=== PATIENT | female | born 1990 | race Caucasian/White ===

== ENCOUNTER → 2024-07-13 13:02 | Outpatient (REF) | payer OTHER, SELFPAY | LOC: HWRAD 13:02 | PROVIDERS: ATTENDING PHYSICIAN Physician Assistant Surgical; FAMILY PHYSICIAN Internal Medicine | DX: N91.2 Amenorrhea, unspecified (principal) | CPT/HCPCS: 76801 ==

== ENCOUNTER 2025-04-29 22:35 | Emergency (ER) | payer OTHER, SELFPAY ==
[2025-04-29 22:37] VITALS: BP 148/84
--- NOTE | 2025-04-30 01:02 | ED.GENMED ---
History of Present Illness
General
Chief Complaint: Allergic Reaction
Source: patient and family
Exam Limitations: none
Time Seen by Provider: 04/29/25 23:35
History of Present Illness
History of Present Illness:
Note:
CHIEF COMPLAINT(S)
Patient presents with a rash accompanied by itching, primarily on the legs.
HISTORY OF PRESENT ILLNESS
The patient is a 34-year-old female, currently 15 weeks , who reports developing a rash associated with significant itching. The patient noted the onset of the rash yesterday evening, with initial relief after sleeping, only for it to flare
up again this afternoon, predominantly affecting the legs, back, and stomach. The rash seems to be more severe on the legs. The patient denies any new lotions, detergents, or exposures but admits to recently attending the beach with family. The
patients past medical history of skin conditions such as eczema was questioned, but no previous episodes during past pregnancies were reported. The patient tried diphenhydramine (Benadryl), which provided minimal relief. She expressed concern about
the safety of medication use during . The patient denies any fever, swelling of the lips, tongue, or throat, and there is no history of systemic symptoms like wheezing or breathing difficulty.
Plan includes reassurance regarding well-being, given normal heart tones and absence of obstetric-related complaints like bleeding or cramping. Dermatologic examination shows rash and hives localized primarily to the legs and back.
PAST MEDICAL AND SURGICAL HISTORY
- Patient is currently 15 weeks .
REVIEW OF SYSTEMS
- Dermatological: Rash with itching on legs, back, and stomach. No reports of swelling or systemic involvement.
- Respiratory: Denies wheezing or respiratory distress.
- Constitutional: Reports waking up with symptoms partially resolved.
PHYSICAL EXAM
General: Alert, no acute distress.
ENT tongue normal, lips normal, throat normal, no stridor
Skin: Erythematous rash noted primarily on the legs; less severe on the back. Hives noted on the legs and to a lesser degree on the arms. No papules. No vesicles
Respiratory: Respirations are non-labored. Lungs clear to auscultation, heart regular without murmur
Neurological: Alert and oriented to person, place, time, and situation.
Psychiatric: Cooperative, appropriate mood & affect.
PROBLEM LIST
Acute:
- Rash with itching, likely related to -associated atopic eruption or potential allergic reaction.
PLAN
- Recommend low-potency topical steroid ointments (prescription to be filled if symptoms persist).
- Commercial Administrator on regular moisturizing and potential use of loratadine (Claritin) if itching becomes intolerable.
- Advise keeping a diary of potential triggers, including new lotions, detergents, or environmental exposures.
- Recommend avoiding potential irritants and maintaining a fragrance-free environment.
- Plan for follow-up if systemic symptoms develop, including respiratory distress or lip/tongue swelling.
- Stress importance of observing the rashs progression and return for urgent care if symptoms escalate.
DIFFERENTIAL DIAGNOSIS
The Differential Diagnosis includes, in no particular order and is not limited to:
1. Atopic eruption of
2. Allergic contact dermatitis
3. Viral exanthem
4. Yxyy-olnj-ctusk disease (less likely, given presentation)
5. Pruritic urticarial papules and plaques of (PUPPP)
6. Drug-induced hypersensitivity
7. Heat rash (miliaria)
8. Seborrheic dermatitis
9. Eczema exacerbation
10. Stress-induced urticaria
Disposition:
SUMMARY OF ENCOUNTER
The patient is a 34-year-old female who presented with hives primarily localized to the legs. She reports the rash is improving despite continued itching. A thorough examination revealed a benign condition except for the presence of hives.
The patient was queried for atopic eruption of or allergen-induced causes.
PLAN
Recommend the use of low-potency topical steroid, triamcinolone, to be applied to the most affected areas. The use of loratadine (Claritin) as needed was also advised for persistent itching. The patient should discontinue diphenhydramine (Benadryl)
if loratadine proves effective. It is crucial for her to follow up with her TRA[employer] for ongoing assessment.
PATIENT EDUCATION AND COUNSELING
Counseled the patient on the potential causes of her rash, including atopic eruption of or allergen exposure. Advised on management strategies including the cautious use of medications considering her . Discussed the importance of
identifying any potential triggers for the rash and maintaining regular follow-ups with her developer advisor.
FOLLOW-UP INSTRUCTIONS
The patient is advised to follow up with her developer advisor to monitor the condition and adjust any management plans as necessary.
MEDICATION RECONCILIATION
1. Recommended triamcinolone ointment for topical use on affected areas.
2. Consider loratadine (Claritin) as needed for persistent itching.
MEDICAL DECISION MAKING
- Complexity of Data Reviewed: Chronic conditions affecting care [current ]. Differential diagnoses considered include atopic eruption of , allergic contact dermatitis, and potential allergic reactions.
- Data:
- Category 1: No external labs or imaging required at this time.
- Category 3: Discussed management with the patient, recommending follow-up with her developer advisor.
- Risk: Prescription medication was prescribed. Triamcinolone ointment and loratadine were recommended, with consideration for her status during planning.
DIAGNOSIS
1. Atopic eruption of (O26.62)
2. Allergic dermatitis (L23.9)
Phy Exam
Physical Exam
Physical Exam:
.
Course
Orders/Labs/Results
Orders:
Orders
04/29/25 23:45
Heart Tones ONCE
Vital Signs
Initial and Last Documented VS:
Initial Vital Signs
Pulse Resp BP Pulse Ox
80 22 148/84 100
04/29/25 22:37 04/29/25 22:37 04/29/25 22:37 04/29/25 22:37
Last Documented Vital Signs
Temp Pulse Resp BP Pulse Ox
98.6 F 80 22 148/84 100
04/30/25 01:01 04/29/25 22:37 04/29/25 22:37 04/29/25 22:37 04/29/25 22:37
*Pulse Oximetry
SaO2: 100
Oxygen Mode of Delivery: Room air
Patient hypoxic: no
*Critical Care Note
Total Time (30-74mins, 75-104mins- exclusive of procedures): Not Applicable
ED Attending Note
-
Portions of this chart may have been created with voice recognition software.� Occasional wrong word or��sound alike� substitutions may have occurred due to the inherent limitations of voice recognition software.
Discharge Plan
Departure
Patient Disposition: Home (Routine Discharge)
Date of Disposition: 04/30/25
Time of Disposition: 01:02
Patient with high blood pressure during this ER visit?: No
Discharge Problem:
Hives
Instructions: Hives (DC)
Prescriptions:
New
triamcinolone acetonide 0.025 % ointment
1 applic topical BID Qty: 80 0RF
No Action
norethindrone-e.estradiol-iron [ ()] 1 EACH tablet
1 tab PO DAILY
prednisolone sodium phosphate 15 MG/5 ML solution
10 ml PO DAILY 3 Days Qty: 30 0RF
Rx Instructions:
Take Prelone starting tomorrow, once daily x 3 days
ondansetron 4 MG tablet,disintegrating
4 mg PO Q8H PRN (Reason: Nausea and Vomiting) 10 Days Qty: 15 0RF
hydrocodone-acetaminophen 15 ML solution
15 ml PO Q4HPRN PRN (Reason: Pain) Qty: 475 0RF
Activity Restrictions/Additional Instructions:
If symptoms persist, consider Claritin daily. Please see your doctor or developer advisor in the next 1 week for follow-up and reevaluation. Consider keeping a diary of when symptoms seem worse to see if there are any allergen triggers. Return
immediately for lip swelling, tongue swelling, difficulty breathing, cough or any other concerns.
Interventions
Interventions:
*Risk Screen - Suicide Last Done: 04/29/25 22:37
*Neglect/Abuse Screening Last Done: 04/29/25 22:37
ED- Cardiac Assessment Last Done: 04/29/25 23:17
ED- Pulmonary Assessment Last Done: 04/29/25 23:17
ED-Skin Assessment Last Done: 04/29/25 23:17
Discharge Date and Time
Print Language: CROATIAN
== END 2025-04-30 01:30 | disposition home or self-care (01) ==
LOC: EMR 22:35
PROVIDERS: EMERGENCY PHYSICIAN Emergency Medicine; FAMILY PHYSICIAN Student in an Organized Health Care Education/Training Program
DX: O99.712 Diseases of the skin and subcutaneous tissue complicating pregnancy, second trimester (principal); L50.9 Urticaria, unspecified; Z3A.15 15 weeks gestation of pregnancy
CPT/HCPCS: 99282